=== PATIENT | male | born 1965 | race Caucasian/White ===

== ENCOUNTER 2017-09-08 22:17 | Observation (INO) ==
[2017-09-08] MEDS ORDERED: *HR* LORazepam 1 MG TABLET PO ONE (22:55)
[2017-09-08 23:02] LABS: Basophils # 0.1 K/mcL (0.0-0.2); Basophils % 0.5 %; Eosinophils # 0.1 K/mcL (0.0-0.6); Hematocrit 46.6 % (37.5-50.1); Hemoglobin 16.1 g/dL (12.9-16.9); Immature Granulocytes % 0.4 % (0-4); Lymphocytes # 3.9 K/mcL (0.6-4.6); Lymphocytes % 37.6 %; Mean Corpuscular HGB Conc 34.5 g/dL (31.6-35.5); Mean Platelet Volume 9.8 fL (9.4-12.4); Monocytes # 0.9 K/mcL (0.0-1.3); Monocytes % 8.8 %; Neutrophils # 5.3 K/mcL (1.6-8.9); Platelet Count 350 K/mcL (140-400); Red Blood Count 5.55 M/mcL (4.19-5.50); Red Cell Distribution Width 13.2 % (11.5-14.5); Segmented Neutrophils % 51.7 %
[2017-09-08] MEDS ORDERED: 0.9 % Sodium Chloride 1,000 ML IVC ONE (23:15)
[2017-09-08 23:22] LABS: BUN/Creatinine Ratio 19 (6-26); Blood Urea Nitrogen 19 mg/dL (6-20); Calcium 11.4 mg/dL (8.6-10.3); Carbon Dioxide 21 mEq/L (23-29); Chloride 103 mEq/L (98-107); Glucose 134 mg/dL (70-105); Osmolality,Calculated 284 (280-300); Sodium 135 mEq/L (136-145); Troponin I < 0.03 ng/mL (< 0.04); eGFR For African Americans > 60 (> 60); eGFR For Non-African Americans > 60 (> 60)
[2017-09-08 23:36] LABS: Thyroid Stimulating Hormone 1.468 mcIU/mL (0.340-5.600)
--- NOTE | 2017-09-09 00:38 | Emergency Department Note ---
Disposition Clinical Impression: Hypercalcemia, Lactic acidosis Disposition: Admitted As Inpatient Condition: Fair Time of Disposition: 01:32 SOB HPI - General Chief Complaint: ED Shortness of Breath/Dyspnea Stated Complaint: SOB, dizzy Time Seen by Provider: 09/08/17 22:26 Source: patient Limitations: no limitations Nursing Notes Reviewed: Yes Vital Signs Reviewed: Yes - History of Present Illness 52-year-old male presented to the emergency department with shortness of breath. Patient studies had dizziness that occurred today while he was driving at work. He also is having some shortness breath that has been going on for 1- 2 days but has worsened over the past day. He said this has never occurred to him he is a smoker for 10 years ago he otherwise is having no complaints that he is having mild chest pain but not having currently at this time. Said he has no fevers or chills or nausea or vomiting. Status generalized does not feel very well may be a little bit of weakness. He has no abdominal pain, pain with urination, change in bowel movement, pain or tearing on the arms or legs headaches, neck pain, back pain. - Related Data Home Medications Medication Instructions Recorded Confirmed No Known Home Drugs 09/09/17 09/09/17 Allergies Allergy/AdvReac Type Severity Reaction Status Date / Time No Known Allergies Allergy Verified 10/23/15 11:07 Review of Systems: 10 point review of systems done and negative unless otherwise stated in the history of present illness. All systems ED: reviewed and negative except as stated. Review of Systems: As Per [facility] Past Medical History - Past Medical History Attestation: Yes The following information was validated with the patient. Source: patient Medical history: Reports: no medical history Surgical history: Reports: other Psychiatric history: Reports: no psych history - Social History Smoking Status: Former smoker Smokeless Tobacco Status: Yes Alcohol use: Reports: none Drug use: Reports: none Physical Exam - General Limitations: no limitations General appearance: anxious - Head Head exam: atraumatic, normocephalic, normal inspection - Eye Eye exam: Present: normal appearance, PERRL, EOMI - ENT ENT exam: normal exam, normal oropharynx, mucous membranes moist - Neck Neck exam: Present: normal inspection, full ROM, trachea midline - Chest Chest inspection: Present: normal inspection, symmetric chest wall rise - Respiratory Respiratory exam: Present: normal lung sounds bilaterally. Absent: respiratory distress, wheezes, accessory muscle use - Cardiovascular Cardiovascular exam: Present: regular rate, normal rhythm, normal heart sounds - Abdominal Exam Abdominal exam: Present: soft, Non-Tender. Absent: tenderness, distention, guarding, rebound, rigidity - Extremities Exam Extremities exam: Present: normal inspection, full ROM. Absent: tenderness, pedal edema - Expanded Lower Extremity Exam Neurovascular/Tendon exam: Present: normal capillary refill. Absent: pulse deficit, motor deficit, sensory deficit, tendon deficit - Back Exam Back exam: Present: normal inspection, full ROM. Absent: tenderness - Neurological Exam Neurological exam: Present: alert, oriented X3 - Skin Skin exam: Present: warm, dry, intact, normal color Course Course Narrative: 52-year-old male presenting to the emergency department complaining of shortness of breath and dizziness. We will do CBC, BMP, albumin, EKG chest x- ray as well as CT angiogram of his chest due to tachycardia. Disposition pending results Vital Signs Temperature 97.5 F L 09/08/17 22:19 Pulse Rate 116 09/08/17 22:19 Respiratory Rate 24 09/08/17 22:19 Blood Pressure 164/96 09/08/17 22:19 O2 Sat by Pulse Oximetry 100 09/08/17 22:19 Temperature 98.3 F 09/09/17 03:56 Pulse Rate 89 09/09/17 03:56 Respiratory Rate 16 09/09/17 03:56 Blood Pressure 129/85 09/09/17 03:56 O2 Sat by Pulse Oximetry 94 09/09/17 03:56 Oxygen Delivery Oxygen Delivery Room Air Shortness of Breath/Dyspnea - [facility] Narrative Medical decision making narrative: 52-year-old male presenting to the emergency department complaining of soreness of breath and dizziness. He was not short of breath when he got here we did place on 4 L he felt much better after being on that. Chest x-ray had no acute abnormalities he did have lactic acidosis we did give him one IV bag of fluids repeat lactate is still pending at this time. We also had a elevated calcium there is no source was elevated calcium. Urinalysis was normal EKG had no acute findings everything else came back normal as well. Due to the unknown elevated calcium and lactic acidosis we feel admission would be warranted. I spoke with Dr. Herrera the hospitalist who agreed to admit the patient to their service. Patient is admitted in stable condition. Chest CTA 09/08/17 22:30 IMPRESSION: No evidence of a pulmonary embolus. There are a few bands of bibasilar atelectasis. Cholelithiasis with a 2.9 cm calcified gallstone. D/ / Beto Cui MD / Beto Cui MD Interpreting Provider: Beto Cui MD - Medical Records Medical records reviewed: Yes I reviewed the patient's medical records. - Lab Data Lab results reviewed: Yes I reviewed the patient's lab results. Result diagrams: 09/09/17 04:22 09/09/17 04:22 Lab Results 09/08/17 09/08/17 09/08/17 Range/Units 22:42 22:42 22:42 WBC 10.2 (4.3-11.1) K/mcL RBC 5.55 H (4.19-5.50) M/mcL Hgb 16.1 (12.9-16.9) g/dL Hct 46.6 (37.5-50.1) % MCV 84.0 (83.0-100.0) fL MCH 29.0 (28.0-33.3) pg MCHC 34.5 (31.6-35.5) g/dL RDW 13.2 (11.5-14.5) % Plt Count 350 (140-400) K/mcL MPV 9.8 (9.4-12.4) fL Immature Gran % 0.4 (0-4) % Seg Neutrophils % 51.7 % Lymphocytes % 37.6 % Monocytes % 8.8 % Eosinophils % 1.0 % Basophils % 0.5 % Neutrophils # 5.3 (1.6-8.9) K/mcL Lymphocytes # 3.9 (0.6-4.6) K/mcL Monocytes # 0.9 (0.0-1.3) K/mcL Eosinophils # 0.1 (0.0-0.6) K/mcL Basophils # 0.1 (0.0-0.2) K/mcL Sodium 135 L (136-145) mEq/L Potassium 4.0 (3.5-5.1) mEq/L Chloride 103 (98-107) mEq/L Carbon Dioxide 21 L (23-29) mEq/L BUN 19 (6-20) mg/dL Creatinine 0.98 (0.70-1.30) mg/dL Est GFR ( Amer) > 60 (> 60) Est GFR (Non-Af Amer) > 60 (> 60) BUN/Creatinine Ratio 19 (6-26) Glucose 134 H (70-105) mg/dL Calculated Osmolality 284 (280-300) Lactic Acid 2.8 H (0.5-2.2) mmol/L Calcium 11.4 H (8.6-10.3) mg/dL Troponin I < 0.03 (< 0.04) ng/mL B-Natriuretic Peptide (Less than 100) pg/mL Albumin 4.6 (3.5-5.7) g/dL TSH 1.468 (0.340-5.600) mcIU/mL 09/08/17 09/09/17 Range/Units 22:42 00:28 WBC (4.3-11.1) K/mcL RBC (4.19-5.50) M/mcL Hgb (12.9-16.9) g/dL Hct (37.5-50.1) % MCV (83.0-100.0) fL MCH (28.0-33.3) pg MCHC (31.6-35.5) g/dL RDW (11.5-14.5) % Plt Count (140-400) K/mcL MPV (9.4-12.4) fL Immature Gran % (0-4) % Seg Neutrophils % % Lymphocytes % % Monocytes % % Eosinophils % % Basophils % % Neutrophils # (1.6-8.9) K/mcL Lymphocytes # (0.6-4.6) K/mcL Monocytes # (0.0-1.3) K/mcL Eosinophils # (0.0-0.6) K/mcL Basophils # (0.0-0.2) K/mcL Sodium (136-145) mEq/L Potassium (3.5-5.1) mEq/L Chloride (98-107) mEq/L Carbon Dioxide (23-29) mEq/L BUN (6-20) mg/dL Creatinine (0.70-1.30) mg/dL Est GFR ( Amer) (> 60) Est GFR (Non-Af Amer) (> 60) BUN/Creatinine Ratio (6-26) Glucose (70-105) mg/dL Calculated Osmolality (280-300) Lactic Acid 1.1 (0.5-2.2) mmol/L Calcium (8.6-10.3) mg/dL Troponin I (< 0.04) ng/mL B-Natriuretic Peptide 9 (Less than 100) pg/mL Albumin (3.5-5.7) g/dL TSH (0.340-5.600) mcIU/mL - Radiology Data Radiology results reviewed: Yes I reviewed the patient's radiology results. - EKG Data EKG attestation: Yes I reviewed and interpreted this EKG. EKG results narrative: EKG done at 2231. Lites of potential sinus tachycardia at a rate of 111, MA 146 , QRS 94, QTC 360 with a normal axis. There is no acute ST changes no acute T- wave changes no other signs of ischemia. No signs of heart hypertrophy or heart block. No WPW/Brugada syndrome. No old EKG Attestation Statement - Attestation Attestation: I examined this patient and my medical decision-making was reviewed with the Resident Physician. I agree with the documented findings, disposition and treatment plan as described except to the extent set forth below. Lactic acidosis, hypercalcemia in the setting of dyspnea. CT shows no evidence of pulmonary embolism. We will admit for trending of cardiac biomarkers, possibly representing a local glands. We will need to trend calcium levels as well as lactic acid.
[2017-09-09 01:04] LABS: Albumin 4.6 g/dL (3.5-5.7)
[2017-09-09] MEDS ORDERED: Acetaminophen 325 MG TABLET PO PRN (01:18)
[2017-09-09] MEDS ORDERED: Naloxone 0.4 MG/ML INJ IVP PRN (01:18)
[2017-09-09] MEDS ORDERED: 0.9 % Sodium Chloride 1,000 ML IVC SCH (01:30)
--- NOTE | 2017-09-09 01:48 | Internal Med History&Physical ---
Date of Encounter: 09/09/17 Time of Encounter: 01:00 Assessment and Plan (1) Chest pressure Current visit: Yes Status: Acute Etiology is undetermined. Patient has several similar symptoms previously. History of smoking. Family history of CAD. - Need to rule out ACS - Continuous cardiac monitoring - Track 3 sets of troponin - Echocardiogram - Stress test if at least the 2 sets of troponin negative and patient is chest pain/pressure free. (2) Shortness of breath Current visit: Yes Status: Acute Patient has no wheezing. CTA has been done in the emergency room. Result is unremarkable. The feeling of shortness of breath has resolved now. - Continue closely monitoring - Rule out CAD, management as above (3) DVT prophylaxis Current visit: Yes Status: Acute Patient is expected have a short hospitalization. He is ambulating well. We will not place any anticoagulations (4) Hypercalcemia Current visit: Yes Status: Acute Patient was found calcium 11.4 when albumin 4.6. Correction Calsium level 10.9. We will repeat calcium level in a.m. together with PTHi. (5) Lactic acidosis Current visit: Yes Status: Acute Etiology is undetermined. Patient has no signs of sepsis. The lactate level get down to 1.1 after hydration Internal Medicine - H&P: HPI Chief complaint: Shortness of breath Admitted From: Home Plans for Post Hospital Care: Home History of present illness: Mr. Lopez is a 52 year old male without significant past medical history present to ER for shortness of breath. Patient said this afternoon when he is driving, he has a sudden onset shortness of breath and dizziness. Patient also complained heaviness in the chest but no chest pain. Patient denies nausea or diaphoresis. He has no fever or cough. Patient said he has similar feeling several times previously, since about one year ago. But this time is the worst time he ever had. The symptoms lasted about 2 hours and subside by itself. Patient is a former smoker, quitted in 2009. Patient has a family history of CAD with his father has heart attack. Patient was admitted for further monitoring and management. When I saw patient in ER, he is symptoms free. Past Med Surg Social Fam HX - Past Medical History Medical history: no medical history Psychiatric history: no psych history - Past Surgical History Surgical History: other - Social History Smoking Status: Former smoker Smokeless Tobacco Status: Yes Alcohol use: none Drug use: none - Family History Father Hx Family Cardiac Disorders: Yes ("Heart attack") Internal Medicine - H&P: Meds No Known Home Drugs 09/09/17 [History] 3 Allergy/AdvReac Type Severity Reaction Status Date / Time No Known Allergies Allergy Verified 10/23/15 11:07 All Systems PM: A 10-system review of systems was performed and is negative for pertinent findings except as documented above in the HPI. - Constitutional Vitals: Temp Pulse Resp BP Pulse Ox 97.5 F L 91 20 161/92 96 09/08/17 22:19 09/09/17 01:27 09/09/17 01:27 09/09/17 01:27 09/09/17 01:27 General appearance: Present: A&O X 3, no acute distress, answers questions appropriately - Head Head exam: Present: atraumatic, normocephalic - Eye Eye exam: Present: PERRL, conjuntiva pink, sclera anicteric Pupils: Present: PERRL - Neck Neck exam general surgery: Present: supple, trachea midline. Absent: lymphadenopathy - Respiratory Respiratory exam: Present: CTAB. Absent: accessory muscle use, rales, rhonchi, wheezes - Cardiovascular Cardiovascular exam: Present: RRR, +S1, +S2. Absent: diastolic murmur, gallop, rubs, systolic murmur - GI/Abdominal GI/Abdominal exam: Present: normal bowel sounds, soft, no peritoneal signs. Absent: distended, tenderness - Extremities Exam Extremities exam: Present: warm, radial pulses palpable and symmetrical. Absent : calf tenderness, cyanotic, pedal edema - Neurological Exam Neurological exam: Present: CN II-XII intact, oriented X3, no focal deficits. Absent: pronater drift, facial droop, speech deficit - Skin Skin exam: Present: dry, intact Internal Med - H&P Results - Labs CBC & Chem 7: 09/08/17 22:42 09/08/17 22:42 - EKG Data -: EKG Interpreted by Myself EKG shows normal: sinus rhythm, ST-T waves (No significant ST-T changes) Rate: tachycardia
[2017-09-09 04:49] LABS: Basophils # 0.1 K/mcL (0.0-0.2); Basophils % 0.5 %; Eosinophils # 0.1 K/mcL (0.0-0.6); Eosinophils % 0.5 %; Hematocrit 42.6 % (37.5-50.1); Immature Granulocytes % 0.3 % (0-4); Lymphocytes # 2.5 K/mcL (0.6-4.6); Lymphocytes % 27.1 %; Mean Corpuscular HGB Conc 33.1 g/dL (31.6-35.5); Mean Corpuscular Hemoglobin 28.7 pg (28.0-33.3); Mean Corpuscular Volume 86.6 fL (83.0-100.0); Mean Platelet Volume 9.9 fL (9.4-12.4); Monocytes # 0.7 K/mcL (0.0-1.3); Monocytes % 7.9 %; Platelet Count 324 K/mcL (140-400); Red Blood Count 4.92 M/mcL (4.19-5.50); Red Cell Distribution Width 13.2 % (11.5-14.5); Segmented Neutrophils % 63.7 %
[2017-09-09 04:51] LABS: Hemoglobin 14.1 g/dL (12.9-16.9)
[2017-09-09 05:11] LABS: Alanine Aminotransferase 50 Units/L (7-52); Albumin/Globulin Ratio 1.3 (1.1-2.2); Alkaline Phosphatase 55 Units/L (34-104); Aspartate Amino Transferase 23 Units/L (13-39); BUN/Creatinine Ratio 23 (6-26); Bilirubin,Total 0.4 mg/dL (0.3-1.0); Blood Urea Nitrogen 18 mg/dL (6-20); Carbon Dioxide 22 mEq/L (23-29); Chloride 107 mEq/L (98-107); Globulin 3.2 g/dL (2.4-3.5); Glucose 105 mg/dL (70-105); Magnesium 1.9 mg/dL (1.6-2.6); Osmolality,Calculated 286 (280-300); Sodium 137 mEq/L (136-145); Total Protein 7.2 g/dL (6.4-8.9); Troponin I < 0.03 ng/mL (< 0.04); eGFR For African Americans > 60 (> 60); eGFR For Non-African Americans > 60 (> 60)
[2017-09-09] MEDS ORDERED: Regadenoson 0.4 MG/5 ML SYRINGE IVP ONE (06:20)
--- NOTE | 2017-09-09 07:56 | Internal Med Progress Note ---
Date of Encounter: 09/09/17 Time of Encounter: 07:54 - Assessment and plan (1) Chest pressure Current Visit: Yes Status: Acute Assessment and plan: Etiology is undetermined. Patient has several similar symptoms previously. History of smoking. Family history of CAD. - Rule out ACS - Continuous cardiac monitoring - Track 3 sets of troponin - Echocardiogram - Stress test if at least the 2 sets of troponin negative and patient is chest pain/pressure free (2) Shortness of breath Current Visit: Yes Status: Acute Assessment and plan: Patient has no wheezing CTA has been done in the emergency room; unremarkable SOB resolved - Continue closely monitoring - Rule out CAD, management as above (3) DVT prophylaxis Current Visit: Yes Status: Acute Assessment and plan: -Patient is expected have a short hospitalization -He is ambulating well (4) Hypercalcemia Current Visit: Yes Status: Acute Assessment and plan: -Elevated calcium at 11.4, albumin 4.6. Corrected calcium: 10.9 -PTH intact was 144.9. -Repeat calcium was 10.0 (5) Lactic acidosis Current Visit: Yes Status: Acute Assessment and plan: -Unknown etiology; patient has no signs of sepsis -Lactate level decreased to 1.1 after hydration - Subjective Interval history: 52-year-old male. No significant past medical history. Presented to the ER with shortness of breath. Sudden onset while driving. Also complained of dizziness, and heaviness in the chest. Similar feeling several times previously. This is the worst episode he had ever had. Symptoms lasted about 2 hours. Former smoker; quit in 2009. Known family history of coronary artery disease. Father had an VT. Upon arrival, patient was placed on 4 L of oxygen. [place] much better. Chest x-ray showed no acute abnormalities. Laboratory examination reveals lactic acidosis. 1 bag of IV fluid was given. Also had an elevated calcium. EKG was unremarkable. Echo has been ordered. Continuous cardiac monitoring. Currently nothing by mouth. Trend troponin. Lactic acid was initially 2.8; has since decreased to 1.1. PTH intact was 144.9. Initial calcium was 11.4. Corrected calcium was 10.9. Repeat calcium was 10.0. - Constitutional Vitals: Temp Pulse Resp BP Pulse Ox 98.8 F 83 15 136/91 94 09/09/17 06:26 09/09/17 06:26 09/09/17 06:26 09/09/17 06:26 09/09/17 06:26 General appearance: Present: A&O X 3, no acute distress, answers questions appropriately - Head Head exam: Present: atraumatic, normocephalic - Eye Eye exam: Present: PERRL, conjuntiva pink, sclera anicteric Pupils: Present: PERRL - Neck Neck exam general surgery: Present: supple, trachea midline. Absent: lymphadenopathy - Respiratory Respiratory exam: Present: CTAB. Absent: accessory muscle use, rales, rhonchi, wheezes - Cardiovascular Cardiovascular exam: Present: RRR, +S1, +S2. Absent: diastolic murmur, gallop, rubs, systolic murmur - GI/Abdominal GI/Abdominal exam: Present: normal bowel sounds, soft, no peritoneal signs. Absent: distended, tenderness - Extremities Exam Extremities exam: Present: warm, radial pulses palpable and symmetrical. Absent : calf tenderness, cyanotic, pedal edema - Neurological Exam Neurological exam: Present: CN II-XII intact, oriented X3, no focal deficits. Absent: pronater drift, facial droop, speech deficit - Skin Skin exam: Present: dry, intact Internal Medicine: Result - Labs CBC & Chem 7: 09/09/17 04:22 09/09/17 04:22 Labs: Short CBC 09/09/17 Range/Units 04:22 WBC 9.4 (4.3-11.1) K/mcL Hgb 14.1 D (12.9-16.9) g/dL Hct 42.6 (37.5-50.1) % Plt Count 324 (140-400) K/mcL Neutrophils # 6.0 (1.6-8.9) K/mcL BMP 09/09/17 04:22 Sodium 137 Potassium 4.0 Chloride 107 Carbon Dioxide 22 L BUN 18 Creatinine 0.79 Glucose 105 Calcium 10.0 Cardiac Enzymes 09/09/17 Range/Units 04:22 Troponin I < 0.03 (< 0.04) ng/mL Liver Function 09/09/17 Range/Units 04:22 Total Bilirubin 0.4 (0.3-1.0) mg/dL AST 23 (13-39) Units/L ALT 50 (7-52) Units/L Alkaline Phosphatase 55 (34-104) Units/L Albumin 4.0 (3.5-5.7) g/dL Consult Discharge Plan - Plan Referrals: Armando Renee Jr, MD [Primary Care Provider] -
[2017-09-09 11:18] VITALS: BP 135/92
--- NOTE | 2017-09-09 13:29 | Discharge Summary ---
<Ismael Flores - Last Filed: 09/09/17 13:25> Date of Encounter: 09/09/17 Time of Encounter: 13:25 - Discharge Diagnosis (1) Chest pressure Priority: Primary Status: Acute (2) Shortness of breath Priority: Secondary Status: Acute (3) DVT prophylaxis Priority: Secondary Status: Acute (4) Hypercalcemia Priority: Secondary Status: Acute (5) Lactic acidosis Priority: Secondary Status: Acute Hospital course: Mr. Lopez is a 52 year old male with no significant past medical history. He presented to the ER with shortness of breath. Sudden onset while driving. Also complained of dizziness, and heaviness in the chest. Similar feeling several times previously. This is the worst episode he had ever had. Symptoms lasted about 2 hours. Former smoker; quit in 2009. Known family history of coronary artery disease and HTN. Father had an OH. Upon arrival, patient was placed on 4 L of oxygen. [place] much better. Chest x-ray showed no acute abnormalities. Laboratory examination reveals lactic acidosis. 1 bag of IV fluid was given. Also had an elevated calcium. EKG was unremarkable. Echo has been ordered. Continuous cardiac monitoring. Currently nothing by mouth. Trend troponin. Lactic acid was initially 2.8; has since decreased to 1.1. PTH intact was 144.9. Initial calcium was 11.4. Corrected calcium was 10.9. Repeat calcium was 10.0. Patient was seen and examined on the date of discharge. He reports that he is feeling well today. His stress test was negative, and ECHO was unremarkable. Reports mild tenderness to palpation on the left side of his chest. Reports having previous episodes of shortness of breath with dizziness and blurred vision in his left eye. Patient's blood pressure is well-controlled this time. Follow-up in the outpatient setting with both primary care and head miller. Currently denies chest pain at rest, shortness of breath, dizziness, nausea, vomiting, diaphoresis, fever, or chills. Patient has no complaints at this time. - Time Spent with Patient Total time spent providing and/or coordinating discharge services: Greater than 30 minutes (41 minutes) - Discharge Medications Home Medications: No Known Home Drugs 09/09/17 [History] Allergies/Adverse Reactions: 3 Allergy/AdvReac Type Severity Reaction Status Date / Time No Known Allergies Allergy Verified 10/23/15 11:07 Date of admission: 09/09/17 01:26 Primary care physician: Armando Renee Jr, MD Discharging clinician: Ismael Flores Anticipated date of discharge: 09/09/17 - Constitutional Vitals: Temp Pulse Resp BP Pulse Ox 98.8 F 80 15 135/92 98 09/09/17 11:00 09/09/17 11:00 09/09/17 11:00 09/09/17 11:00 09/09/17 11:00 General appearance: Present: A&O X 3, no acute distress, answers questions appropriately - Head Head exam: Present: atraumatic, normocephalic - Eye Eye exam: Present: PERRL, conjuntiva pink, sclera anicteric Pupils: Present: PERRL - Neck Neck exam general surgery: Present: supple, trachea midline. Absent: lymphadenopathy - Respiratory Respiratory exam: Present: CTAB. Absent: accessory muscle use, rales, rhonchi, wheezes - Cardiovascular Cardiovascular exam: Present: RRR, +S1, +S2. Absent: diastolic murmur, gallop, rubs, systolic murmur - Extremities Exam Extremities exam: Present: warm, radial pulses palpable and symmetrical. Absent : calf tenderness, cyanotic, pedal edema - Neurological Exam Neurological exam: Present: CN II-XII intact, oriented X3, no focal deficits. Absent: pronater drift, facial droop, speech deficit - Skin Skin exam: Present: dry, intact - Patient Status Disposition: Home, Self-Care Condition: Fair Overall status at discharge: patient is progressing back to baseline - Discharge Instructions Instructions: Cardiac Stress Test (DC), Cardiac Stress Test (GEN), Chest Pain ( DC), Chest Pain (GEN) Follow Up With: Armando Renee Jr, MD [Primary Care Provider] - 09/14/17 2:00 pm - Diet and Activity Activity: increase activity as tolerated Diet: advance to your usual diet <Beto Cevallos - Last Filed: 09/09/17 14:45> Date of Encounter: 09/09/17 Hospital course: Mr. Lopez is a 52 year old male - Time Spent with Patient Total time spent providing and/or coordinating discharge services: Date of admission: 09/09/17 01:26 Primary care physician: Armando Renee Jr, MD - Constitutional Vitals: Temp Pulse Resp BP Pulse Ox 98.8 F 80 15 135/92 98 09/09/17 11:00 09/09/17 11:00 09/09/17 11:00 09/09/17 11:00 09/09/17 11:00 - Attending Attestation I performed an independent interview and exam of this patient. I agree with the findings, assessment, and plan of Dr. Flores, internal medicine sales management intern. I suspect his pain is more musculoskeletal in nature based on his description. He does have hypercalcemia and evidence of primary hyperparathyroidism. This will be followed up with his primary care provider and recommend he have repeat calcium and parathyroid hormone checked in a month or so. I do not believe he is symptomatic. Patient otherwise is doing well and deemed stable for discharge.
--- NOTE | 2017-09-09 22:58 | Electrocardiograph Report ---
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
== END 2017-09-09 14:40 | disposition home or self-care (01) ==
LOC: EMEROO 22:17 → 2NENU 22:17
PROVIDERS: ADMIT Internal Medicine; ATTEND Internal Medicine

== ENCOUNTER 2020-02-04 13:34 | Observation (INO) ==
[2020-02-04] MEDS ORDERED: 0.9 % Sodium Chloride 1,000 ML IVC ONE ×2 (13:59→16:22)
[2020-02-04 14:17] LABS: Basophils % 0.2 %; Hematocrit 42.7 % (37.5-50.1); Hemoglobin 13.7 g/dL (12.9-16.9); Immature Granulocytes % 0.6 % (0-4); Lymphocytes # 1.6 K/mcL (0.6-4.6); Lymphocytes % 17.1 %; Mean Corpuscular HGB Conc 32.1 g/dL (31.6-35.5); Mean Corpuscular Hemoglobin 28.2 pg (28.0-33.3); Mean Platelet Volume 10.2 fL (9.4-12.4); Monocytes # 0.8 K/mcL (0.0-1.3); Monocytes % 9.1 %; Neutrophils # 6.6 K/mcL (1.6-8.9); Platelet Count 285 K/mcL (140-400); Red Blood Count 4.85 M/mcL (4.19-5.50); Red Cell Distribution Width 13.8 % (11.5-14.5); White Blood Count 9.1 K/mcL (4.3-11.1)
[2020-02-04 14:41] LABS: BUN/Creatinine Ratio 17 (6-26); Blood Urea Nitrogen 16 mg/dL (6-20); Calcium 9.6 mg/dL (8.6-10.3); Carbon Dioxide 22 mEq/L (23-29); Chloride 102 mEq/L (98-107); Glucose 118 mg/dL (70-105); Osmolality,Calculated 282 (280-300); Potassium 3.9 mEq/L (3.5-5.1); Sodium 135 mEq/L (136-145); Troponin I < 0.03 ng/mL (< 0.04); eGFR For African Americans > 60 (> 60); eGFR For Non-African Americans > 60 (> 60)
[2020-02-04 15:52] LABS: Adenovirus Not Detected (Not Detect); Bordetella Pertussis Not Detected (Not Detect); Chlamydophila pneumoniae Not Detected (Not Detect); Coronavirus 229E Not Detected (Not Detect); Coronavirus HKU1 Not Detected (Not Detect); Coronavirus NL63 Not Detected (Not Detect); Coronavirus OC43 Not Detected (Not Detect); Human Metapneumovirus Not Detected (Not Detect); Human Rhinovirus/Enterovirus Not Detected (Not Detect); Influenza A Subtype 2009 H1 Not Detected (Not Detect); Influenza B Not Detected (Not Detect); Mycoplasma pneumoniae Not Detected (Not Detect); Parainfluenza Virus 1 Not Detected (Not Detect); Parainfluenza Virus 2 Not Detected (Not Detect); Parainfluenza Virus 3 Not Detected (Not Detect); Parainfluenza Virus 4 Not Detected (Not Detect); Respiratory Syncytial Virus Not Detected (Not Detect)
[2020-02-04 16:35] LABS: ABG Base Excess -4 mEq/L (-2 to 3); ABG HCO3 20 mEq/L (21-27); ABG Oxygen Saturation 95 % (95-98); ABG PCO2 31 mmHg (35-45); ABG PH 7.42 pH Units (7.32-7.45); ABG PO2 75 mmHg (85-104); ABG TCO2 21 mEq/L (20-26)
[2020-02-04] MEDS: Dexamethasone 4 MG/ML VIAL IVP SCH (17:52)
[2020-02-04] MEDS ORDERED: Benzonatate 100 MG CAPSULE PO PRN (17:55)
[2020-02-04] MEDS: *HR* Heparin 5,000 UNIT/ML VIAL SQ SCH (21:01)
[2020-02-04] MEDS ORDERED: *HR* OxyCODONE Immed Rel 5 MG TABLET PO PRN (21:58)
[2020-02-04] MEDS ORDERED: Ibuprofen 400 MG TABLET PO PRN (21:58)
[2020-02-04] MEDS ORDERED: Naloxone 0.4 MG/ML INJ IVP PRN (21:58)
[2020-02-05] MEDS: *HR* Heparin 5,000 UNIT/ML VIAL SQ SCH (05:08)
[2020-02-05 06:35] LABS: Basophils % 0.1 %; Hematocrit 38.9 % (37.5-50.1); Hemoglobin 12.5 g/dL (12.9-16.9); Immature Granulocytes % 0.8 % (0-4); Lymphocytes # 1.3 K/mcL (0.6-4.6); Lymphocytes % 17.4 %; Mean Corpuscular HGB Conc 32.1 g/dL (31.6-35.5); Mean Corpuscular Hemoglobin 29.1 pg (28.0-33.3); Mean Corpuscular Volume 90.5 fL (83.0-100.0); Mean Platelet Volume 10.7 fL (9.4-12.4); Monocytes # 0.7 K/mcL (0.0-1.3); Monocytes % 10.1 %; Neutrophils # 5.3 K/mcL (1.6-8.9); Platelet Count 255 K/mcL (140-400); Red Cell Distribution Width 13.8 % (11.5-14.5); Segmented Neutrophils % 71.6 %; White Blood Count 7.4 K/mcL (4.3-11.1)
[2020-02-05 06:52] LABS: BUN/Creatinine Ratio 16 (6-26); Blood Urea Nitrogen 12 mg/dL (6-20); Calcium 9.4 mg/dL (8.6-10.3); Carbon Dioxide 23 mEq/L (23-29); Chloride 106 mEq/L (98-107); Glucose 154 mg/dL (70-105); Osmolality,Calculated 285 (280-300); Potassium 4.7 mEq/L (3.5-5.1); Sodium 136 mEq/L (136-145); eGFR For African Americans > 60 (> 60); eGFR For Non-African Americans > 60 (> 60)
[2020-02-05] MEDS: Dexamethasone 4 MG/ML VIAL IVP SCH (08:41)
[2020-02-05] MEDS ORDERED: Nitroglycerin 0.4 MG TAB.SUBL SL ONE (22:14)
[2020-02-05] MEDS: Nitroglycerin 0.4 MG TAB.SUBL SL PRN ×3 (22:21→22:31)
[2020-02-06 01:31] LABS: Basophils % 0.1 %; Hematocrit 37.5 % (37.5-50.1); Hemoglobin 12.3 g/dL (12.9-16.9); Immature Granulocytes % 0.6 % (0-4); Lymphocytes # 1.5 K/mcL (0.6-4.6); Lymphocytes % 18.1 %; Mean Corpuscular HGB Conc 32.8 g/dL (31.6-35.5); Mean Corpuscular Hemoglobin 29.1 pg (28.0-33.3); Mean Corpuscular Volume 88.7 fL (83.0-100.0); Mean Platelet Volume 10.4 fL (9.4-12.4); Monocytes % 11.5 %; Neutrophils # 5.8 K/mcL (1.6-8.9); Platelet Count 304 K/mcL (140-400); Red Blood Count 4.23 M/mcL (4.19-5.50); Red Cell Distribution Width 13.5 % (11.5-14.5); Segmented Neutrophils % 69.7 %; White Blood Count 8.3 K/mcL (4.3-11.1)
[2020-02-06 02:00] LABS: BUN/Creatinine Ratio 24 (6-26); Blood Urea Nitrogen 16 mg/dL (6-20); Calcium 9.7 mg/dL (8.6-10.3); Carbon Dioxide 20 mEq/L (23-29); Chloride 107 mEq/L (98-107); Glucose 146 mg/dL (70-105); Osmolality,Calculated 288 (280-300); Sodium 137 mEq/L (136-145); Troponin I < 0.03 ng/mL (< 0.04); eGFR For African Americans > 60 (> 60); eGFR For Non-African Americans > 60 (> 60)
[2020-02-06] MEDS ORDERED: *HR* Enoxaparin 40 MG/0.4 ML SYRINGE SQ SCH (06:00)
[2020-02-06] MEDS: Dexamethasone 4 MG/ML VIAL IVP SCH (09:10)
[2020-02-06 12:37] VITALS: BP 129/84
== END 2020-02-06 15:23 | disposition home or self-care (01) ==
LOC: EMEROOARM 13:34 → 2NENU 13:34 → SUATTDRO 15:43 → 2NENU 17:00
PROVIDERS: ADMIT Family Medicine; ATTEND Student in an Organized Health Care Education/Training Program

== ENCOUNTER 2022-01-09 17:59 | Observation (INO) ==
[2022-01-09] MEDS ORDERED: 0.9 % Sodium Chloride 1,000 ML IVC ONE ×2 (18:51→19:56)
[2022-01-09] MEDS ORDERED: *HR* FentaNYL (PF) 100 MCG/2 ML VIAL IVP STA (18:53)
[2022-01-09 19:13] LABS: Basophils # 0.1 K/mcL (0.0-0.2); Basophils % 0.4 %; Eosinophils % 0.2 %; Hematocrit 43.9 % (37.5-50.1); Hemoglobin 14.2 g/dL (12.9-16.9); Immature Granulocytes % 0.3 % (0-4); Lymphocytes # 0.7 K/mcL (0.6-4.6); Mean Corpuscular HGB Conc 32.3 g/dL (31.6-35.5); Mean Corpuscular Hemoglobin 29.3 pg (28.0-33.3); Mean Corpuscular Volume 90.5 fL (83.0-100.0); Mean Platelet Volume 9.8 fL (9.4-12.4); Monocytes # 0.8 K/mcL (0.0-1.3); Monocytes % 6.1 %; Neutrophils # 12.1 K/mcL (1.6-8.9); Platelet Count 319 K/mcL (140-400); Red Blood Count 4.85 M/mcL (4.19-5.50); Red Cell Distribution Width 13.4 % (11.5-14.5); White Blood Count 13.8 K/mcL (4.3-11.1)
[2022-01-09 19:47] LABS: Alanine Aminotransferase 31 Units/L (7-52); Albumin 4.9 g/dL (3.5-5.7); Albumin/Globulin Ratio 1.5 (1.1-2.2); Alkaline Phosphatase 47 Units/L (34-104); Aspartate Amino Transferase 45 Units/L (13-39); BUN/Creatinine Ratio 21 (6-26); Bilirubin,Total 0.7 mg/dL (0.3-1.0); Blood Urea Nitrogen 19 mg/dL (6-20); Calcium 10.5 mg/dL (8.6-10.3); Carbon Dioxide 26 mEq/L (23-29); Chloride 103 mEq/L (98-107); Creatine Kinase 957 Units/L (30-223); Globulin 3.3 g/dL (2.4-3.5); Glucose 96 mg/dL (70-105); Magnesium 2.2 mg/dL (1.6-2.6); Osmolality,Calculated 286 (280-300); Phosphorous 2.5 mg/dL (2.7-4.5); Potassium 4.3 mEq/L (3.5-5.1); Sodium 137 mEq/L (136-145); Total Protein 8.2 g/dL (6.4-8.9); eGFR For African Americans > 60 (> 60); eGFR For Non-African Americans > 60 (> 60)
[2022-01-09 19:56] LABS: Bilirubin,Urine Negative (Negative); Blood,Urine Negative (Negative); Clarity,Urine Clear (Clear); Color,Urine Light-Yellow (Yellow); Glucose,Urine (UA) Normal (Normal); Ketones,Urine 20 mg/dL (Negative); Leukocyte Esterase,Urine Negative (Negative); Nitrite,Urine Negative (Negative); PH,Urine 6.5 pH Units (5.0-8.0); Protein,Urine Negative (Neg-Trace); Specific Gravity,Urine 1.024 (1.010-1.025); Urobilinogen,Urine Normal (Normal)
[2022-01-09] MEDS ORDERED: 0.9 % Sodium Chloride 1,000 ML IVC SCH (20:15)
[2022-01-09] MEDS ORDERED: Acetaminophen 325 MG TABLET PO PRN (20:25)
[2022-01-09] MEDS ORDERED: Naloxone 0.4 MG/ML INJ IVP PRN (20:25)
[2022-01-09] MEDS ORDERED: *HR* OxyCODONE Immed Rel 5 MG TABLET PO PRN (20:25)
[2022-01-09] MEDS ORDERED: Ondansetron ODT 4 MG TAB.RAPDIS SL PRN (20:25)
[2022-01-09] MEDS ORDERED: Saliva Stimulant 44.3ml BOTTLE PO PRN (22:46)
[2022-01-09] MEDS: 0.9 % Sodium Chloride 1,000 ML IVC SCH (23:15)
[2022-01-10 02:29] LABS: Hematocrit 31.7 % (37.5-50.1); Mean Corpuscular HGB Conc 32.8 g/dL (31.6-35.5); Mean Corpuscular Hemoglobin 29.8 pg (28.0-33.3); Mean Corpuscular Volume 90.8 fL (83.0-100.0); Mean Platelet Volume 9.7 fL (9.4-12.4); Platelet Count 229 K/mcL (140-400); Red Blood Count 3.49 M/mcL (4.19-5.50); Red Cell Distribution Width 13.7 % (11.5-14.5)
[2022-01-10 02:33] LABS: Alanine Aminotransferase 20 Units/L (7-52); Albumin 3.2 g/dL (3.5-5.7); Albumin/Globulin Ratio 1.7 (1.1-2.2); Alkaline Phosphatase 33 Units/L (34-104); Aspartate Amino Transferase 31 Units/L (13-39); BUN/Creatinine Ratio 24 (6-26); Bilirubin,Total 0.6 mg/dL (0.3-1.0); Blood Urea Nitrogen 16 mg/dL (6-20); Carbon Dioxide 25 mEq/L (23-29); Chloride 113 mEq/L (98-107); Globulin 1.9 g/dL (2.4-3.5); Glucose 124 mg/dL (70-105); Osmolality,Calculated 295 (280-300); Potassium 3.5 mEq/L (3.5-5.1); Sodium 141 mEq/L (136-145); Total Protein 5.1 g/dL (6.4-8.9); eGFR For African Americans > 60 (> 60); eGFR For Non-African Americans > 60 (> 60)
[2022-01-10] MEDS: 0.9 % Sodium Chloride 1,000 ML IVC SCH (03:28)
[2022-01-10 03:53] LABS: Hemoglobin 10.4 g/dL (12.9-16.9)
[2022-01-10] MEDS ORDERED: Lidocaine/EPI 1:200k 1% PF 10 ML VIAL ONE (07:21)
[2022-01-10] MEDS ORDERED: *HR* Midazolam HCl 2 MG/2 ML VIAL ONE (07:29)
[2022-01-10] MEDS ORDERED: Lidocaine -MPF 2% 5 ML VIAL ONE (07:29)
[2022-01-10] MEDS ORDERED: *HR* FentaNYL (PF) 100 MCG/2 ML VIAL ONE (07:29)
[2022-01-10] MEDS ORDERED: Ringers Solution, Lactated 1,000 ML ONE (07:36)
[2022-01-10] MEDS ORDERED: Ropivacaine/PF 0.5% 30 ML VIAL ONE (07:37)
[2022-01-10] MEDS ORDERED: *HR* Labetalol 20 MG/4 ML SYRINGE IVP PRN ×2 (08:02→13:51)
[2022-01-10] MEDS ORDERED: Ondansetron 4 MG/2 ML VIAL IVP PRN ×2 (08:02→13:51)
[2022-01-10] MEDS ORDERED: Famotidine 20 MG/2 ML VIAL IVP ONE ×2 (08:02→13:51)
[2022-01-10] MEDS ORDERED: *HR* HYDROmorphone 2 MG TABLET PO PRN ×2 (08:02→13:51)
[2022-01-10] MEDS ORDERED: *HR* OxyCODONE Immed Rel 5 MG TABLET PO PRN ×3 (08:02→13:51)
[2022-01-10] MEDS ORDERED: Acetaminophen IV 1,000 MG/100 ML BAG IVPB ONE ×2 (08:02→13:51)
[2022-01-10] MEDS ORDERED: *HR* Propofol 200 MG/20 ML VIAL IVP ONE (08:03)
[2022-01-10] MEDS ORDERED: EPHEDrine 50 MG/ML VIAL ONE (08:58)
[2022-01-10] MEDS ORDERED: Ondansetron 4 MG/2 ML VIAL ONE (09:08)
[2022-01-10] MEDS ORDERED: *HR* HYDROMORPHONE 2 MG/ML VIAL ONE (10:09)
[2022-01-10] MEDS: *HR* HYDROmorphone (PF) 1 MG/ML SYRINGE IVP PRN ×2 (11:01→11:02)
[2022-01-10] MEDS ORDERED: Pregabalin 75 MG CAPSULE PO ONE (11:03)
[2022-01-10] MEDS ORDERED: Ketorolac 30 MG/ML VIAL IVP PRN (11:03)
[2022-01-10] MEDS ORDERED: CloNIDine Patch 0.1 MG PATCH (WEEKLY) TD SCH (11:15)
[2022-01-10] MEDS ORDERED: Acetaminophen 325 MG TABLET PO PRN (13:51)
[2022-01-10] MEDS ORDERED: Ondansetron ODT 4 MG TAB.RAPDIS SL PRN (13:51)
[2022-01-10] MEDS ORDERED: Saliva Stimulant 44.3ml BOTTLE PO PRN (13:51)
[2022-01-10] MEDS ORDERED: *HR* HYDROmorphone (PF) 1 MG/ML SYRINGE IVP PRN (13:51)
[2022-01-10] MEDS ORDERED: 0.9 % Sodium Chloride 1,000 ML IVC SCH (13:51)
[2022-01-10] MEDS ORDERED: Naloxone 0.4 MG/ML INJ IVP PRN (13:51)
[2022-01-10] MEDS ORDERED: 0.9 % Sodium Chloride 500 ML IVC ONE (14:43)
[2022-01-10] MEDS: ceFAZolin 2,000 MG in 0.9 % Sodium Chloride 100 ML IVPB SCH ×2 (17:22→23:57)
[2022-01-10] MEDS ORDERED: *HR* HYDROcodone/Acet 5/325 mg TABLET PO PRN (18:24)
[2022-01-10] MEDS: *HR* HYDROcodone/Acet 5/325 mg TABLET PO PRN (23:39)
[2022-01-11 02:06] LABS: Basophils % 0.1 %; Eosinophils % 0.1 %; Hematocrit 33.9 % (37.5-50.1); Hemoglobin 11.1 g/dL (12.9-16.9); Immature Granulocytes % 0.2 % (0-4); Lymphocytes # 0.8 K/mcL (0.6-4.6); Lymphocytes % 9.1 %; Mean Corpuscular HGB Conc 32.7 g/dL (31.6-35.5); Mean Corpuscular Hemoglobin 29.8 pg (28.0-33.3); Mean Corpuscular Volume 91.1 fL (83.0-100.0); Mean Platelet Volume 9.8 fL (9.4-12.4); Monocytes % 11.5 %; Neutrophils # 6.7 K/mcL (1.6-8.9); Platelet Count 260 K/mcL (140-400); Red Blood Count 3.72 M/mcL (4.19-5.50); Red Cell Distribution Width 13.6 % (11.5-14.5); White Blood Count 8.5 K/mcL (4.3-11.1)
[2022-01-11 02:29] LABS: BUN/Creatinine Ratio 18 (6-26); Blood Urea Nitrogen 15 mg/dL (6-20); Calcium 9.1 mg/dL (8.6-10.3); Carbon Dioxide 27 mEq/L (23-29); Chloride 105 mEq/L (98-107); Glucose 126 mg/dL (70-105); Osmolality,Calculated 286 (280-300); Potassium 3.8 mEq/L (3.5-5.1); Sodium 137 mEq/L (136-145); eGFR For African Americans > 60 (> 60); eGFR For Non-African Americans > 60 (> 60)
[2022-01-11] MEDS: *HR* HYDROcodone/Acet 5/325 mg TABLET PO PRN ×2 (04:40→11:12)
[2022-01-11 05:53] VITALS: O2SAT 100
[2022-01-11 06:48] VITALS: BP 138/85; PULSE 80; TEMP 98.1
== END 2022-01-11 11:49 | disposition home or self-care (01) ==
LOC: 3BNU 17:59 → EMEROOARM 17:59 → SUATTDRO 20:24 → 3BNU 22:06 → 4WAOSI 01-10 13:32
PROVIDERS: ADMIT Internal Medicine; ATTEND Registered Nurse